=== PATIENT | female | born 1985 | race Caucasian/White ===

== ENCOUNTER 2017-08-02 17:04 | Emergency (ER) | payer OTHER ==
[~2017-08-02] VITALS: Ht 160 cm; Wt 96.2 kg
[~2017-08-02 17:04] MED LIST: ADIPEX-P37.5 M1 PO; ALEVE220 M1; AMOXIL 875 MG875 M1 PO; EFFEXOR XR150 MG PO; EFFEXOR XR75 MG PO; HYDROCODON-ACE1 EACH PO; HYDROCODONE-AP1 EAC6 PO; IBUPROFEN 200200 M1 PO; LIDOCAINE VISC100 M1 MM; MEDROLDOSEPACK PO; MIRALAX255 GM PO; MUCINEX TA600 MG/TA2 PO; NORCO 5-325 TA1 EAC1 PO; NORCO 5-325 TA1 EACH PO; ONDANSETRON HCL4 M2 PO; PENICILLIN V P500 MG PO; PENICILLIN VK250 MG PO; PROAIR HFA8.5 GM INH; SKELAXIN 800 M800 M1 PO; TAMIFLU75 MG PO; TRAMADOL 50 MG50 MG PO; TYLENOL325 MG PO; ZANAFLEX4 MG PO; ZOFRAN4 MG PO
[2017-08-02] MEDS ORDERED: NORCO 5-325 TA1 EAC1 PO (17:33)
[2017-08-02 17:49] VITALS: BP 149/99
== END 2017-08-02 17:50 | disposition home or self-care (01) ==
LOC: M.ERS 17:04
DX: K02.9 Dental caries, unspecified (principal)

== ENCOUNTER 2017-11-15 14:47 | Emergency (ER) | payer BC ==
[~2017-11-15] VITALS: Ht 160 cm; Wt 95.3 kg
[2017-11-15] MEDS ORDERED: HYDROCODONE-AP1 EAC6 PO (15:50)
[2017-11-15] MEDS ORDERED: KEFLEX500 M1 PO (15:50)
[2017-11-15] MEDS ORDERED: LIDOCAINE VISC100 ML SWISH&SPIT (15:50)
[2017-11-15 16:13] VITALS: BP 132/99
== END 2017-11-15 16:14 | disposition home or self-care (01) ==
LOC: M.ERS 14:47
DX: K02.9 Dental caries, unspecified (principal); G43.909 Migraine, unspecified, not intractable, without status migrainosus; F17.210 Nicotine dependence, cigarettes, uncomplicated; Z87.442 Personal history of urinary calculi; Z88.1 Allergy status to other antibiotic agents; Z88.5 Allergy status to narcotic agent; Z88.8 Allergy status to other drugs, medicaments and biological substances

== ENCOUNTER 2019-02-05 10:15 | Emergency (ER) | payer OTHER ==
[~2019-02-05] VITALS: Ht 160 cm; Wt 98.4 kg
[~2019-02-05 10:15] MED LIST changes: +KEFLEX500 M1 PO; +LIDOCAINE VISC100 ML SWISH&SPIT
[2019-02-05] MEDS ORDERED: IBUPROFEN 800800 MG PO (11:42)
[2019-02-05 12:09] VITALS: BP 135/82
== END 2019-02-05 12:10 | disposition home or self-care (01) ==
LOC: M.ERS 10:15
DX: S89.82XA Other specified injuries of left lower leg, initial encounter (principal); G43.909 Migraine, unspecified, not intractable, without status migrainosus; Z90.49 Acquired absence of other specified parts of digestive tract; F17.210 Nicotine dependence, cigarettes, uncomplicated; Z88.1 Allergy status to other antibiotic agents; Z88.5 Allergy status to narcotic agent; Z88.8 Allergy status to other drugs, medicaments and biological substances; W10.9XXA Fall (on) (from) unspecified stairs and steps, initial encounter; Y93.89 Activity, other specified; Y92.89 Other specified places as the place of occurrence of the external cause; Y99.8 Other external cause status

== ENCOUNTER 2019-09-13 10:37 | Emergency (ER) | payer OTHER ==
[~2019-09-13] VITALS: Ht 160 cm; Wt 98.4 kg
[~2019-09-13 10:37] MED LIST changes: +IBUPROFEN 800800 MG PO
[2019-09-13 11:19] LABS: URINE BILIRUBIN NEGATIVE (Negative); URINE BLOOD NEGATIVE (Negative); URINE CLARITY SL CLOUDY; URINE COLOR YELLOW; URINE GLUCOSE-RANDOM NEGATIVE (Negative); URINE KETONES NEGATIVE (Negative); URINE NITRITE-REFLEX NEGATIVE (Negative); URINE PROTEIN NEGATIVE (Negative); URINE SPECIFIC GRAVITY 1.015 (1.005-1.030); URINE UROBILINOGEN 0.2 E.U./dl (0.2-1.0)
[2019-09-13 11:21] LABS: URINE LEUKOCYTES-REFLEX 3+ (Negative)
[2019-09-13 11:43] LABS: ABSOLUTE BASOPHILS 0.1 thou/uL (0.0-0.2); ABSOLUTE EOSINOPHILS 0.1 thou/uL (0.0-0.7); ABSOLUTE LYMPHOCYTES 2.5 thou/uL (0.8-5.3); ABSOLUTE MONOCYTES 0.6 thou/uL (0.0-1.2); ABSOLUTE NEUTROPHILS 8.8 thou/uL (1.6-8.1); BASOPHILS 0.7 %; EOSINOPHILS 1.1 %; HEMOGLOBIN 13.9 gm/dL (12.0-15.0); LYMPHOCYTES 20.5 %; MCH 32.3 pg (26.0-34.0); MCV 94.9 fL (80.0-100.0); MONOCYTES 4.9 %; MPV 9.5 fl. (7.2-11.1); NUCLEATED RBCS 0 /100WBC; PLATELET COUNT* 410 thou/uL (150-400); POLYS 72.8 %; RBC 4.32 mil/uL (4.20-5.00); RDW-CV 12.7 % (10.5-14.5); WBC 12.1 thou/uL (4.0-11.0)
[2019-09-13 11:51] LABS: CALCIUM 9.2 mg/dL (8.5-10.1); CREATININE 0.8 mg/dL (0.6-1.3); POTASSIUM 4.1 mmol/L (3.5-5.1)
[2019-09-13 11:55] LABS: ALBUMIN 4.1 g/dL (3.4-5.0); TOTAL BILIRUBIN 0.5 mg/dL (<0.1-1.0); TOTAL PROTEIN 8.6 g/dL (6.4-8.2)
[2019-09-13 12:02] LABS: SQUAMOUS >10 Many /LPF (0-3)
[2019-09-13 12:03] LABS: BACTERIA-REFLEX >30 Many /HPF (None Seen); CASTS None Seen /LPF (None Seen); CRYSTALS None Seen /LPF (None Seen); MUCUS >6 Heavy strn/LPF (None Seen); URINE RBC 0-2 Rare /HPF (0-2); URINE WBC-REFLEX 6-15 Few /HPF (0-5)
[2019-09-13] MEDS ORDERED: BACTRIM DS TAB1 EAC1 PO (17:14)
[2019-09-13] MEDS ORDERED: NAPROSYN500 MG PO (17:14)
[2019-09-13] MEDS ORDERED: NORCO 5-325 TA1 EAC1 PO ×2 (17:14→17:21)
[2019-09-13] MEDS ORDERED: ONDANSETRON ODT4 MG PO (17:14)
--- NOTE | 2019-09-16 13:56 | EKG ---
[place] [address] ELECTROCARDIOGRAM REPORT Name: RYLIE VARMA [place]: [place] [id number] Admission: 09/13/19 Attend Phys: Discharge: 09/13/19 Date of : 87 Date of Service: 09/13/19 1059 Report #: [id number] THIS REPORT FOR: cc: FAM - No family physician/PCP FAM - No family physician/PCP Mahesh Duong MD [facility] ~ THIS REPORT FOR: //name// [facility] ED Test Date: 2019-09-13 Test Time: 10:59:06 Pat Name: RYLIE VARMA Department: Room: Gender: F Offbearer: : 1985 Requested By: Parvez Cunha Order Number: [id number] MD: Mahesh Duong Measurements Intervals Smith Rate: 96 P: 31 NH: 147 QRS: -28 QRSD: 127 T: 126 QT: 382 QTc: 483 Interpretive Statements Sinus rhythm Left bundle branch block Compared to ECG 04/14/2015 17:52:31 Left bundle-branch block now present Myocardial infarct finding no longer present Electronically Signed On 09-14-2019 16:02:32 [employer] by Mahesh Duong [email or web address] <ELECTRONICALLY SIGNED> By: Mahesh Duong MD, [facility] 09/14/19 1602 1059 1059 Mahesh Duong MD, [facility] /EPI
== END 2019-09-13 15:12 | disposition home or self-care (01) ==
LOC: M.ERS 10:37
PROVIDERS: Emergency Medicine Emergency Medical Services
DX: N39.0 Urinary tract infection, site not specified (principal); N83.201 Unspecified ovarian cyst, right side; R11.2 Nausea with vomiting, unspecified; G43.909 Migraine, unspecified, not intractable, without status migrainosus; F17.210 Nicotine dependence, cigarettes, uncomplicated; Z88.1 Allergy status to other antibiotic agents; Z88.5 Allergy status to narcotic agent; Z88.8 Allergy status to other drugs, medicaments and biological substances

== ENCOUNTER 2020-03-19 20:02 | Emergency (ER) | payer OTHER ==
[~2020-03-19] VITALS: Ht 160 cm; Wt 97.5 kg
[~2020-03-19 20:02] MED LIST changes: +BACTRIM DS TAB1 EAC1 PO; +NAPROSYN500 MG PO; +ONDANSETRON ODT4 MG PO
[2020-03-19] MEDS ORDERED: BUSPIRONE HCL15 MG PO (20:11)
[2020-03-19] MEDS ORDERED: CELEXA 20 MG TA20 MG PO (20:12)
[2020-03-19] MEDS ORDERED: INDERAL LA120 M1 PO (20:12)
[2020-03-19] MEDS ORDERED: SUBOXONE 8 MG-1 EAC3 SUBLING (20:46)
[2020-03-19] MEDS ORDERED: AMITRIPTYLINE H75 M1 PO (20:55)
[2020-03-19] MEDS ORDERED: HYDROXYZINE PAM25 M1 PO (20:55)
[2020-03-19 21:09] VITALS: BP 128/92
== END 2020-03-19 21:09 | disposition home or self-care (01) ==
LOC: M.ERS 20:02
DX: F41.9 Anxiety disorder, unspecified (principal); F19.939 Other psychoactive substance use, unspecified with withdrawal, unspecified; G43.909 Migraine, unspecified, not intractable, without status migrainosus; F17.210 Nicotine dependence, cigarettes, uncomplicated; Z87.442 Personal history of urinary calculi; Z90.49 Acquired absence of other specified parts of digestive tract; Z88.1 Allergy status to other antibiotic agents; Z88.6 Allergy status to analgesic agent; Z88.8 Allergy status to other drugs, medicaments and biological substances

== ENCOUNTER 2021-01-11 22:22 | Emergency (ER) | payer OTHER ==
[~2021-01-11] VITALS: Ht 160 cm; Wt 82.6 kg
[~2021-01-11 22:22] MED LIST changes: +AMITRIPTYLINE H75 M1 PO; +BUSPIRONE HCL15 MG PO; +CELEXA 20 MG TA20 MG PO; +HYDROXYZINE PAM25 M1 PO; +INDERAL LA120 M1 PO; +SUBOXONE 8 MG-1 EAC3 SUBLING
[2021-01-11 22:32] VITALS: BP 139/106
[2021-01-11] MEDS ORDERED: BACTRIM DS TAB1 EAC1 PO (22:35)
[2021-01-11] MEDS ORDERED: ATIVAN1 M1 PO (22:44)
== END 2021-01-11 23:00 | disposition home or self-care (01) ==
LOC: M.ERS 22:22
DX: G47.00 Insomnia, unspecified (principal); F41.9 Anxiety disorder, unspecified; G43.909 Migraine, unspecified, not intractable, without status migrainosus; F17.210 Nicotine dependence, cigarettes, uncomplicated; Z88.1 Allergy status to other antibiotic agents; Z76.0 Encounter for issue of repeat prescription; Z88.5 Allergy status to narcotic agent; Z88.8 Allergy status to other drugs, medicaments and biological substances

== ENCOUNTER 2021-01-25 03:13 | Emergency (ER) | payer OTHER ==
[~2021-01-25] VITALS: Ht 160 cm; Wt 83.5 kg
[~2021-01-25 03:13] MED LIST changes: +ATIVAN1 M1 PO
[2021-01-25 03:19] VITALS: BP 123/89
== END 2021-01-25 04:05 | disposition home or self-care (01) ==
LOC: M.ERS 03:13
DX: Z76.89 Persons encountering health services in other specified circumstances (principal); G43.909 Migraine, unspecified, not intractable, without status migrainosus; F17.210 Nicotine dependence, cigarettes, uncomplicated; Z88.1 Allergy status to other antibiotic agents; Z88.5 Allergy status to narcotic agent; Z88.8 Allergy status to other drugs, medicaments and biological substances; Z87.442 Personal history of urinary calculi